=== PATIENT | female | born 1980 | race American Indian/Alaskan Native ===

== ENCOUNTER 2020-04-06 19:09 | Emergency (ER) | payer OTHER ==
[2020-04-06 21:51] LABS: Basophils % (Auto) 0.6 % (0.0-1.8); Eosinophils % (Auto) 1.5 % (0.0-4.3); Hematocrit 33.5 % (30.3-42.9); Hemoglobin 10.5 gm/dl (10.1-14.3); Lymphocytes # (Auto) 1.5 K/mm3 (1.2-5.4); Lymphocytes % (Auto) 25.5 % (13.4-35.0); Mean Corpuscular HGB Conc 31 % (30-34); Mean Corpuscular Volume 73 fl (79-97); Monocytes # (Auto) 0.3 K/mm3 (0.0-0.8); Monocytes % (Auto) 5.7 % (0.0-7.3); Platelet Count 183 K/mm3 (140-440); Red Blood Count 4.61 M/mm3 (3.65-5.03); Red Cell Distribution Width 30.6 % (13.2-15.2)
[2020-04-06 21:52] LABS: Eosinophils # (Auto) 0.1 K/mm3 (0.0-0.4)
[2020-04-06 22:36] LABS: Bilirubin,Urine NEG (Negative); Blood,Urine LG (Negative); Color,Urine Yellow (Yellow); Mucus,Urine FEW /HPF; Urobilinogen,Urine < 2.0 mg/dL (<2.0)
[2020-04-06 22:38] LABS: RBC,Urine > 182.0 /HPF (0.0-6.0)
--- NOTE | 2020-04-07 00:40 | Ultrasound Report ---
EARLY OBSTETRICAL ULTRASOUND INDICATION: Early , vaginal bleeding COMPARISON: None recent TECHNIQUE: Transabdominal FINDINGS: Early intrauterine is noted in the fundal region. pole and yolk sac are cierra ntified. Estimated gestational age by crown-rump length is 6 weeks 4 days. Cardiac activity was docum ented with heart rate of 118 bpm. Prominent amount of what appears to be subchorionic hemorrhage is noted. This appears to nearly encir constantine the gestational sac and measures roughly 6.3 cm in length with a thickness of approximately 2 cm. Right ovary is not visualized. Left ovary measures 2.8 cm in length and shows no abnormalities. No fr ee fluid is seen. IMPRESSION: Early intrauterine is documented as above. There appears to be a large subchori onic bleed. Close follow-up is suggested. Signer Name: Abdi Dockery MD Signed: 04/07/2020 12:36 AM Workstation Name: [id number]
[2020-04-07] MEDS ORDERED: cephALEXin 500 MG CAP PO ONE (02:15)
[2020-04-07] MEDS ORDERED: ACETAMINOPHEN 500 MG TAB PO ONE (02:15)
--- NOTE | 2020-04-07 02:38 | Emergency Department Report ---
ED Female HPI - General Chief complaint: Vaginal Bleeding Stated complaint: POSS MISCARRIAGE 7 WKS PREG Source: patient Mode of arrival: Ambulatory Limitations: No Limitations - History of Present Illness Initial comments: Patient is a A1 39-year-old -[place] female who is approximately 6 to 7 weeks gestation and who presents to the ED with acute onset persistent vaginal spotting and suprapubic pain for the last 4 days. Patient states that the bleeding was initially mild and spotting 4 days ago but in the last 24 hours the bleeding has been heavier resembling a menstrual cycle with some clots. Patient denies dysuria, urinary frequency and urgency, chest pain, shortness of breath, nausea and vomiting or diarrhea, low back pain, change in vision, fever and chills or traumatic injury and heavy lifting. MD Complaint: vaginal bleeding, pelvic pain -: Sudden, days(s) (4) Location: suprapubic, other (Vaginal) Radiation: non-radiating Severity: moderate Severity scale (0 -10): 5 Quality: cramping, sharp, aching Consistency: constant Improves with: none Worsens with: movement Are you Now?: Yes (6 weeks gestation) Associated Symptoms: denies other symptoms, vaginal bleeding, abdominal pain, hematuria. denies: vaginal discharge, nausea/vomiting, fever/chills, headaches, loss of appetite, dysuria, rash, seizure, shortness of breath, syncope, weakness - Related Data Sexually active: Yes : 3 Para: 1 A: 1 Home Medications Medication Instructions Recorded Confirmed Last Taken Vit-Fe Fumar-FA [ 1 tab PO QDAY 04/12/15 06/06/15 06/05/15 12:00 Vitamin] Ferrous Sulfate [Feosol] 325 mg PO QDAY 06/06/15 06/06/15 06/04/15 09:00 Previous Rx's Medication Instructions Recorded Last Taken Type Acetaminophen [Tylenol] 1,000 mg PO Q6HR PRN #30 tablet 04/07/20 Unknown Rx cephALEXin [Keflex] 500 mg PO Q8HR #30 cap 04/07/20 Unknown Rx Allergies Allergy/AdvReac Type Severity Reaction Status Date / Time No Known Allergies Allergy Unverified 04/12/15 11:24 ED Review of Systems ROS: Stated complaint: POSS MISCARRIAGE 7 WKS PREG Other details as noted in HPI Constitutional: denies: chills, fever Eyes: denies: eye pain, eye discharge, vision change ENT: denies: ear pain, throat pain Respiratory: denies: cough, shortness of breath, wheezing Cardiovascular: denies: chest pain, palpitations Endocrine: no symptoms reported Gastrointestinal: abdominal pain (Suprapubic pain). denies: nausea, diarrhea Genitourinary: hematuria, abnormal menses (Vaginal bleeding), other. denies: urgency, dysuria, discharge Musculoskeletal: denies: back pain, joint swelling, arthralgia Skin: denies: rash, lesions Neurological: denies: headache, weakness, paresthesias Psychiatric: denies: anxiety, depression Hematological/Lymphatic: denies: easy bleeding, easy bruising ED Past Medical Hx - Past Medical History Previous Medical History?: No Hx Hypertension: No Hx Congestive Heart Failure: No Hx Diabetes: No Hx Deep Vein Thrombosis: No Hx Renal Disease: No Hx Sickle Cell Disease: No Hx Seizures: No Hx Asthma: No Hx COPD: No Hx HIV: No - Surgical History Past Surgical History?: No - Social History Smoking Status: Never Smoker Substance Use Type: None - Medications Home Medications: Home Medications Medication Instructions Recorded Confirmed Last Taken Type Vit-Fe Fumar-FA [ 1 tab PO QDAY 04/12/15 06/06/15 06/05/15 12:00 History Vitamin] Ferrous Sulfate [Feosol] 325 mg PO QDAY 06/06/15 06/06/15 06/04/15 09:00 History Acetaminophen [Tylenol] 1,000 mg PO Q6HR PRN #30 tablet 04/07/20 Unknown Rx cephALEXin [Keflex] 500 mg PO Q8HR #30 cap 04/07/20 Unknown Rx ED Physical Exam - General Limitations: No Limitations General appearance: alert, in no apparent distress - Head Head exam: Present: atraumatic, normocephalic, normal inspection - Eye Eye exam: Present: normal appearance, PERRL, EOMI Pupils: Present: normal accommodation - ENT ENT exam: Present: normal exam, normal orophraynx, mucous membranes moist, TM's normal bilaterally, normal external ear exam - Neck Neck exam: Present: normal inspection, full ROM - Respiratory Respiratory exam: Present: normal lung sounds bilaterally. Absent: respiratory distress, wheezes, rales, stridor, chest wall tenderness, accessory muscle use, decreased breath sounds, prolonged expiratory, other - Cardiovascular Cardiovascular Exam: Present: regular rate, normal rhythm, normal heart sounds. Absent: systolic murmur, diastolic murmur, rubs, gallop - GI/Abdominal GI/Abdominal exam: Present: soft, normal bowel sounds. Absent: tenderness, guarding, rigid, hyperactive bowel sounds, hypoactive bowel sounds - Bi-manual exam: Present: other (Pelvic exam deferred) - Extremities Exam Extremities exam: Present: normal inspection, full ROM, normal capillary refill - Back Exam Back exam: Present: normal inspection, full ROM. Absent: tenderness, CVA tenderness (R), CVA tenderness (L), muscle spasm, paraspinal tenderness, vertebral tenderness - Neurological Exam Neurological exam: Present: alert, oriented X3, CN II-XII intact, normal gait, reflexes normal - Psychiatric Psychiatric exam: Present: normal affect, normal mood - Skin Skin exam: Present: warm, dry, intact, normal color. Absent: rash ED Course Vital Signs 04/06/20 04/07/20 21:08 02:26 Temperature 98.8 F Pulse Rate 94 H Respiratory 18 16 Rate Blood Pressure 188/100 O2 Sat by Pulse 98 Oximetry ED Medical Decision Making - Lab Data Result diagrams: 04/06/20 21:13 - Radiology Data Radiology results: report reviewed, image reviewed Transvaginal ultrasound showed a single live IUP of approximately 6 weeks and 4 days with a heart rate of 118 bpm and subchorionic bleed surrounding the gestational sac. - Medical Decision Making This is a A1 39-year-old -[place] female who is approximately 6 to 7 weeks gestation and who presents to the ED with acute onset persistent vaginal spotting and suprapubic pain for the last 4 days. Patient states that the bleeding was initially mild and spotting 4 days ago but in the last 24 hours the bleeding has been heavier resembling a menstrual cycle with some clots. In the ED, patient is alert and oriented x3 and is not in distress with normal vital signs. Lab test results were reviewed and are all nonactionable with hCG quant of 9477. Urinalysis showed significant urinary tract infection with blood in urine. Patient was treated in the ED with Tylenol and also given Keflex 1 g p.o. x1. Transvaginal ultrasound showed a single live IUP of approximately 6 weeks and 4 days with a heart rate of 118 bpm and subchorionic bleed surrounding the gestational sac. On reevaluation, patient's pain is well controlled with medication. Patient was discharged home on pain medications and oral antibiotics for UTI and was advised to maintain a complete pelvic rest with no physical or strenuous activities or sexual activities. Patient was advised to follow-up with her [employer] physician in 3 to 5 days for reevaluation or return to the ED immediately if symptoms get worse. - Differential Diagnosis Threatened miscarriage; Ruptured ovarian cysts; subchorionic bleed; UTI Critical care attestation.: If time is entered above; I have spent that time in minutes in the direct care o f this critically ill patient, excluding procedure time. ED Disposition Clinical Impression: Threatened miscarriage in early , Abdominal pain during in first trimester, Acute urinary tract infection Disposition: TO HOME OR SELFCARE Is pt being admited?: No Does the pt Need Aspirin: No Condition: Stable Instructions: Vaginal Bleeding During , First Trimester, Threatened Miscarriage, [id number], Urinary Tract Infection, Adult, [id number] Additional Instructions: All lab test results were reviewed and are all nonactionable except for urinalysis that showed significant urinary tract infection and blood in urine. It ultrasound showed single live intrauterine of approximately 6 weeks and 4 days gestation with a heart rate of 118 bpm and subchorionic bleed around the gestational sac. Therefore maintain a complete pelvic rest with no physical or strenuous activities, sexual activity and take medications as advised, follow-up with your [employer] physician in 3 to 5 days for reevaluation. Return to the ED immediately if symptoms get worse. Prescriptions: Acetaminophen [Tylenol] 1,000 mg PO Q6HR PRN #30 tablet PRN Reason: Pain , Severe (7-10) cephALEXin [Keflex] 500 mg PO Q8HR #30 cap Referrals: RAMSES VELAZCO MD [Staff Physician] - 3-5 Days Time of Disposition: 02:36 Print Language: HEBREW
[2020-04-07 03:33] VITALS: BP 137/86
== END 2020-04-07 03:33 | disposition home or self-care (01) ==
LOC: ED 19:09
DX: O20.0 Threatened abortion (principal); O23.41 Unspecified infection of urinary tract in pregnancy, first trimester; O26.891 Other specified pregnancy related conditions, first trimester; R10.2 Pelvic and perineal pain; Z3A.01 Less than 8 weeks gestation of pregnancy; Z79.899 Other long term (current) drug therapy
CPT/HCPCS: 36415; 76801; 81001; 84702; 85025; 86900; 86901; 87086

== ENCOUNTER 2021-07-27 12:07 | Day surgery (SDC) | payer OTHER ==
[2021-07-24 12:19] LABS: Mean Corpuscular HGB Conc 28 % (30-34); Red Blood Count 4.24 M/mm3 (3.65-5.03)
[2021-07-24 12:28] LABS: Hematocrit 24.9 % (30.3-42.9)
[2021-07-24 12:29] LABS: Mean Corpuscular Volume 59 fl (79-97); Red Cell Distribution Width 22.7 % (13.2-15.2)
[2021-07-24 13:49] LABS: Platelet Count 230 K/mm3 (140-440)
--- NOTE | 2021-07-24 17:39 | History and Physical Report ---
History of Present Illness Date of examination: 07/24/21 History of present illness: Patient has been reassessed/reevaluated. H&P has been reviewed. No interval changes. This is a 40 year old Patient desires sterilization. Discussed with various methods of contraceptives including abstinence, barrier and hormonal. Discussed oral, implantable, dermal, injectable,intravaginal and intrauterine methods. Patient declined temporary contraceptives. Discuss the permanency of sterilization. High risk of regret and 0.5 to 1% risk of failure. Questions answered Patient understands and desires to proceed. Vital Signs: Patient Profile: 40 Years Old Female LMP: 07/15/2021 Height: 65 inches (165.10 cm) Weight: 248 pounds BMI: 41.26 Temp: 97.9 degrees F BP sittin / 80 (left arm) Menstrual History: LMP (date): 07/15/2021 On BCP's at conception: no Current Method of Contraception: None Date of Last Mammogram: 05/30/2021 Date of Last Pap Smear: 05/23/2021 Past History : 4 Term Births: 1 Premature Births: 0 Living Children: 1 Para: 1 Mult. Births: 0 Prev : 0 Prev. attempt? 0 Aborta: 3 Elect. Ab: 0 Spont. Ab: 3 Ectopics: 0 # 1 Delivery date: 2001 Weeks Gestation: 38 labor: no Delivery type: Anesthesia type: epidural Delivery location: [facility] [place] Infant Sex: Female weight: 6lbs 6oz Comments: no complications # 2 Delivery date: 06/06/2015 Weeks Gestation: 21 Delivery type: Vaginal Anesthesia type: IV medication Sex: male Comments: / # 3 Delivery date: 04/2020 Weeks Gestation: 7wks Delivery type: SAB Comments: No complications # 4 Delivery date: 09/2020 Weeks Gestation: 15 Delivery type: SAB Current Allergies (reviewed today): No known allergies Past Medical History: demise at 21 weeks Past Surgical History: negative Family History Summary: Other Family Member - Has No Family History of Ovarvian Cancer - Entered On: 07/24/2021 Other Family Member - Has No Family History of Colon Cancer - Entered On: 07/24/2021 Other Family Member - Has No Family History of Breast Cancer - Entered On: 07/24/2021 Other Family Member - Has Family History of Diabetes - Entered On: 07/24/2021 General Comments - FH: DM-parents Risk Factors Tobacco use: never Passive smoke exposure: no Alcohol use: yes Type: occ Caffeine use (drinks/day): 1 Exercise (times/week): 3 Seatbelt use: 100 % [employer] History Uterine Surgery (not C/S): negative Operations: negative Anesthesia Complications: negative Abnormal PAP: positive, 2017 Uterine Anomaly: negative KIMMY Exposure: negative Infertility: negative Infection History HIV Risk Eval: no TB exposure: no Personal hx. of genital herpes: yes Partner hx. of genital herpes: no Rash/viral illness since LMP: no Hx of STD: Trich Review of Systems General Complains of fatigue. Denies fever, chills, sweats, anorexia, weakness, malaise, weight loss and sleep disorder. Denies vaginal discharge, incontinence, dysuria, hematuria, urinary frequency, amenorrhea, menorrhagia, abnormal vaginal bleeding, pelvic pain, genital sores, decreased libido, painful periods, painful sex, urinary urgency, hot flashes, vaginal dryness, vaginal itching and vaginal odor. CV Denies chest pains, palpitations, syncope, dyspnea on exertion, orthopnea, PND and peripheral edema. Resp Denies cough, dyspnea at rest, excessive sputum, hemoptysis, wheezing and pleurisy. GI Denies nausea, vomiting, diarrhea, constipation, change in bowel habits, abdominal pain, melena, hematochezia, jaundice, gas/bloating, indigestion/heartburn, dysphagia and odynophagia. Breast Denies left breast lump, right breast lump, nipple discharge, bloody discharge from nipple, breast pain, abnormal mammogram and breast enlargement. Psych Denies depression, anxiety, irritability and mood swings. Past History Past Medical History: other (SEE HPI) Past Surgical History: Other (SEE HPI) Social history: full code, other (SEE HPI) Family history: other (SEE HPI) Medications and Allergies Allergies Allergy/AdvReac Type Severity Reaction Status Date / Time No Known Allergies Allergy Unverified 07/21/21 15:13 Home Medications Medication Instructions Recorded Confirmed Last Taken Type No Known Home Medications [No 07/21/21 07/21/21 Unknown History Reported Home Medications] Review of Systems Constitutional: other (SEE HPI) Exam - Physical Exam Narrative exam: HEENT: normocephalic, no lesions or deformities Skin no ulcers, xanthomas Chest: respiratory effort normal, clear to auscultation CV: regular, normal S1-S2, no murmur, no rub, no gallop Abdomen: Obese, soft, non-tender, no masses, bowel sounds normal Neuro: no gross anomalities Extremities: normal alignment, no joint enlargement, crepitus, masses or tenderness; normal tone and strength [employer] Exams Vulva/Vagina: normal appearance, no discharge, lesions. No evidence of cystocele or rectocele. Cervix: normal appearance, no lesions, no discharge Uterus: unable to palpate due to obesity Adnexae: unable to palpate due to obesity Rectovaginal: exam defered - Constitutional Vitals: Temp Pulse Resp BP Pulse Ox 98.9 F 66 20 145/83 98 07/24/21 12:00 07/24/21 12:00 07/24/21 12:00 07/24/21 12:00 07/24/21 12:00 Results - Labs CBC & Chem 7: 07/24/21 06:00 07/27/21 Unknown Labs: Abnormal lab results 07/24/21 Range/Units 06:00 WBC 4.3 L (4.5-11.0) K/mm3 Hgb 7.0 L (10.1-14.3) gm/dl Hct 24.9 L (30.3-42.9) % MCV 59 L (79-97) fl MCH 17 L (28-32) pg MCHC 28 L (30-34) % RDW 22.7 H (13.2-15.2) % Assessment and Plan - Patient Problems (1) Encounter for sterilization Status: Acute Plan to address problem: Patient desires sterilization.Discuss the permanency of sterilization. High risk of regret and 0.5 to 1% risk of failure. Discussed options of tubal blockage and salpingectomy and it's possible benefit of preventing ovarian cancer and increased risks of bleeding during the procedure. Discuss the risks of the surgery including infection, bleeding possibly heavy enough to require a blood transfusion, possilble damage to bowel, bladder or ureter. Patient understands and desires to proceed with salpingectomy. (2) Anemia Status: Acute Qualifiers: Anemia type: unspecified type Qualified Code(s): D64.9 - Anemia, unspecified (3) Herpes genitalis Status: Chronic Qualifiers: Herpes simplex infection site: unspecified Qualified Code(s): A60.00 - Herpesviral infection of urogenital system, unspecified (4) BMI 40.0-44.9, adult Status: Chronic
--- NOTE | 2021-07-27 07:51 | Anesthesia Day of Surgery ---
Anesthesia Day of Surgery - Day of Surgery Patient Examined: Yes Patient H&P Reviewed: Yes Patient is NPO: Yes
--- NOTE | 2021-07-27 07:52 | Anesthesia Consultation ---
Anesthesia Consult and Med Hx Date of service: 07/27/21 - Airway Anesthetic Teeth Evaluation: Good ROM Head & Neck: Adequate Mental/Hyoid Distance: Adequate Mallampati Class: Class I Intubation Access Assessment: Good - Pre-Operative Health Status ASA Pre-Surgery Classification: ASA3 Proposed Anesthetic Plan: General - Pulmonary Hx Asthma: No COPD: No Hx Pneumonia: No - Cardiovascular System Hx Hypertension: No - Central Nervous System Hx Seizures: No Hx Psychiatric Problems: No - Gastrointestinal Hx Gastroesophageal Reflux Disease: No - Endocrine Hx Renal Disease: No Hx End Stage Renal Disease: No Hx Hypothyroidism: No Hx Hyperthyroidism: No - Hematic Hx Anemia: Yes (7.0/24.9) Hx Sickle Cell Disease: No - Other Systems Hx Alcohol Use: Yes (Occas) Hx Cancer: No Hx Obesity: Yes (BMI 40)
--- NOTE | 2021-07-27 10:00 | Operative Report ---
Operative Report Operative Report: Date of procedure: July 27, 2021 Pre-operative diagnosis: Patient desires permanent sterilization Post-operative diagnosis: Same Procedure name(s): Laparoscopic bilateral salpingectomy Surgeon: Tunde Chadwick MD Demolition Crane Operator: NONI Anesthesia: General endotracheal EBL: Minimal Complications: None Findings: Patient with uterus approximately 8-10 weeks in size with normal fallopian tubes bilaterally Specimen(s): Bilateral fallopian tubes Patient was brought in the operating room. General anesthesia was induced without difficulty. She was placed in dorsal lithotomy position. Prepped and draped in usual sterile manner. Her urinary bladder with was emptied with a red rubber catheter. Speculum placed in her vagina and Sargis uterine manipulator was placed for uterine manipulation without difficulty. Attention was then switched to the patient's abdomen. An infra-umbilical incision was made with a scalpel. This incision was spread with a hemostat. A 5 mm trocar was placed in this incision while lifting high the abdominal wall. Intra-abdominal presence was verified directly with the laparoscope. The patient was then insufflated to approximately 3 L of CO2 gas. The patient's findings as noted above. An accessory puncture was made suprapubically. The 8 mm trocar was placed through this incision under direct visualization with no evidence of internal organ damage. Each of the fallopian tube were identified by its fimbriated end. Starting with the right fallopian tube approximately 1 to 2 cm from the cornea LigaSure device was used to cross sectional cut the tube. From this point the ligature device was used to cauterize and cut the mesosalpinx until the fimbriated end was reached detaching the tube. The fallopian tube was then removed through the accessory port attention was then switched to the contralateral tube. Same procedure was performed detaching that tube and removed it through the accessory port. The remaining stump was inspected and found to be hemostatic. At this time all instruments were removed. The patient was de-insufflated. The skin incisions were closed subcuticularly with 4-0 Vicryl. Marcaine was injected into the surgical incisions, for postoperative pain relief. The patient tolerated procedure well. She was awakened in the operating room and accompanied to the recovery room in good condition.
--- NOTE | 2021-07-27 10:05 | Short Stay Summary ---
Short Stay Documentation Date of service: 07/27/21 - History Principal diagnosis: Desires sterilization H&P: dictated Past Medical History: other (SEE HPI) Past Surgical History: Other (SEE HPI) Social history: full code, other (SEE HPI) - Allergies and Medications Current Medications: Allergies No Known Allergies Allergy (Unverified 07/21/21 15:13) Home Medications Medication Instructions Recorded Confirmed Last Taken Type No Known Home Medications [No 07/21/21 07/21/21 Unknown History Reported Home Medications] Active Medications Acetaminophen (Acetaminophen 500 Mg Tab) 1,000 mg PO ONCE@0800 COUNT INCLUDES THE [facility] Stop: 07/27/21 20:00 Last Admin: 07/27/21 08:05 Dose: 1,000 mg Acetaminophen (Acetaminophen 325 Mg Tab) 650 mg PO Q4H PRN PRN Reason: Pain MILD(1-3)/Fever >100.5/DE LA O Celecoxib (Celecoxib 200 Mg Cap) 400 mg PO PREOP NR Stop: 07/27/21 20:00 Last Admin: 07/27/21 08:05 Dose: 400 mg Hydromorphone HCl (Hydromorphone 1 Mg/1 Ml Inj) 0.25 mg IV Q10MIN PRN PRN Reason: Pain, Moderate (4-6) Stop: 07/27/21 17:00 Hydromorphone HCl (Hydromorphone 1 Mg/1 Ml Inj) 0.5 mg IV Q10MIN PRN PRN Reason: Pain , Severe (7-10) Stop: 07/27/21 17:00 Lactated Ringer's (Lactated Ringers) 1,000 mls @ 125 mls/hr IV DIRECT COUNT INCLUDES THE [facility] Last Admin: 07/27/21 07:40 Dose: 125 mls/hr Magnesium Oxide (Magnesium Oxide 400 Mg Tab) 400 mg PO ONCE@0830 COUNT INCLUDES THE [facility] Stop: 07/27/21 20:00 Last Admin: 07/27/21 08:05 Dose: 400 mg Methocarbamol (Methocarbamol 750 Mg Tab) 1,500 mg PO ONCE@0800 COUNT INCLUDES THE [facility] Stop: 07/27/21 20:00 Last Admin: 07/27/21 08:05 Dose: 1,500 mg Midazolam HCl (Midazolam 2 Mg/2 Ml Inj) 2 mg IV PREOP NR Stop: 07/27/21 23:59 Last Admin: 07/27/21 09:15 Dose: 2 mg Ondansetron HCl (Ondansetron 4 Mg/2 Ml Inj) 4 mg IV ONCE PRN PRN Reason: Nausea And Vomiting Stop: 07/27/21 17:00 Oxycodone/Acetaminophen (Oxycodone /Acetaminophen 5-325mg Tab) 1 tab PO Q6H PRN PRN Reason: Pain, Moderate (4-6) - Physical exam General appearance: no acute distress Integumentary: no rash HEENT: Atraumatic Lungs: Normal air movement Breasts: deferred Heart: Regular rate Gastrointestinal: normal, distended (Appropriately postop) Female Genitourinary: normal Rectal Exam: deferred Extremities: no ischemia - Brief post op/procedure progress note Date of procedure: 07/27/21 (See dictated operative note) Condition: stable - Hospital course Hospital course: Patient was admitted underwent the above him procedure without any complications. Patient will be discharged with follow-up in office in 1-2 weeks for postop check. - Disposition Condition at discharge: Good Disposition: 01 HOME / SELF CARE / HOMELESS - Discharge Diagnoses (1) Encounter for sterilization Status: Acute (2) Anemia Status: Acute Qualifiers: Anemia type: unspecified type Qualified Code(s): D64.9 - Anemia, unspecified (3) Herpes genitalis Status: Chronic Qualifiers: Herpes simplex infection site: unspecified Qualified Code(s): A60.00 - Herpesviral infection of urogenital system, unspecified (4) BMI 40.0-44.9, adult Status: Chronic Short Stay Discharge Plan Activity: advance as tolerated Diet: regular Wound: open to air Additional Instructions: Patient to call office for any fever, chills, nausea, vomiting or pain not controlled by pain medication. Follow up with: PRIMARY CAREMD [Primary Care Provider] - 7 Days
--- NOTE | 2021-07-27 11:08 | Post Anesthesia Evaluation ---
- Post Anesthesia Evaluation Patient Participated: Yes Airway Patent: Yes Stable Respiratory Function: Yes Nausea/Vomiting: No Temp > 96.8F: Yes Pain Manageable: Yes Adequeate Hydration: Yes Anesthesia Complications: No Block Receding Appropriately: Not Applicable Patient on Ventilator: No
[~2021-07-27 12:07] MED LIST: ACETAMINOPHEN 325 MG TAB PO PRN; ACETAMINOPHEN 500 MG TAB PO SCH; BUPIVACAINE/PF (0.5%) 5 MG/1 ML 30 ML VIAL INFILTRATI ONE; CELECOXIB 200 MG CAP PO NR; GLYCOPYRROLATE 0.4 MG/2 ML INJ ONE; HYDROmorphone 1 MG/1 ML INJ IV PRN; KETAMINE/STERILE WATER 50 MG/ML SYRINGE ONE; LACTATED RINGERS 1,000 ML IV SCH; LACTATED RINGERS 1,000 ML ONE; LIDOCAINE PF 100 MG/5 ML (CARDIAC SYRINGE) IV ONE; MAGNESIUM OXIDE 400 MG TAB PO SCH; MIDAZOLAM 2 MG/2 ML INJ IV NR; NEOSTIGMINE 10MG/10 ML INJ MDV ONE; ONDANSETRON 4 MG/2 ML INJ IV PRN; SODIUM CHLORIDE 0.9% IRR 1,500 ML BOTTLE IR ONE; SUCCINYLCHOLINE CHLORIDE 200 MG/10 ML INJ MDV ONE; SUGAMMADEX SODIUM 200 MG/2 ML VIAL IV ONE; dexAMETHasone 20 MG/5 ML VIAL ONE; fentaNYL 100 MCG/2 ML INJ ONE; oxyCODONE /ACETAMINOPHEN 5-325MG TAB PO PRN; propofoL 200 MG/20 ML VIAL IV ONE
[2021-07-27 12:11] VITALS: BP 143/93
== END 2021-07-27 12:08 | disposition home or self-care (01) ==
LOC: OR 12:07
PROVIDERS: ATTEND Obstetrics & Gynecology
DX: Z30.2 Encounter for sterilization (principal); D50.9 Iron deficiency anemia, unspecified; E66.9 Obesity, unspecified; Z20.822 Contact with and (suspected) exposure to COVID-19; Z79.899 Other long term (current) drug therapy; Z72.89 Other problems related to lifestyle; Z83.3 Family history of diabetes mellitus; Z98.890 Other specified postprocedural states; Z68.39 Body mass index [BMI] 39.0-39.9, adult; Z82.49 Family history of ischemic heart disease and other diseases of the circulatory system
CPT/HCPCS: 36415; 58670; 82565; 84703; 85027; 88302; J0330; J1100; J1170; J1815; J2001; J2250; J2405; J2704; J2710; J3010; J3490; J7120; U0003